=== PATIENT | male | born 1995 | race Caucasian/White ===

== ENCOUNTER 2016-03-31 06:49 | Emergency (ER) | payer SELFPAY ==
[~2016-03-31] VITALS: Ht 183.5 cm; Wt 72.6 kg
[2016-03-31] MEDS ORDERED: NKM (06:57)
[2016-03-31 07:04] VITALS: BP 104/71
[2016-03-31] MEDS ORDERED: NORCO 5-325 TA1 EACH ORAL (07:35)
[2016-03-31 07:52] VITALS: BP 135/89
[2016-03-31] MEDS ORDERED: Acetaminophen 500mg (ES) tab ORAL ONE (08:00)
--- NOTE | 2016-03-31 09:21 | Diagnostic Imaging Report ---
Indication: Trauma Technique: Continuous helical transaxial imaging of the maxillofacial structures obtained without intravenous contrast administration. Coronal 2-D reformats were also obtained. Study obtained in a Siemens sensation [address] Total Dose length Product (DLP): [address] Dose Index Volume (CTDIvol): 28, 70.4 mGy Comparison: None Findings: There is suggestion of a mild nondisplaced fracture at the tip of the nasal bone. The remainder of the osseous structures seen on this examination appear intact. The paranasal sinuses and mastoids appear clear bilaterally. Orbits are unremarkable. Impression: Acute nasal fracture. The CT scanner at [facility] is accredited by the [employer] and the scans are performed using protocols designed to limit radiation exposure to as low as reasonably achievable to attain images of sufficient resolution adequate for diagnostic evaluation.
--- NOTE | 2016-03-31 10:11 | Diagnostic Imaging Report ---
Indication: Headache Technique: Contiguous 5 mm thick transaxial imaging of the head obtained in a Siemens Sensation [address] scanner. Soft tissue and bone windows generated. Total Dose length Product (DLP): [address] Dose Index Volume (CTDIvol): 70.38 , 28.2 mGy Comparison: none Findings: The size and configuration of the cortical sulci, basal cisterns, and ventricles are within normal limits for age. There is no mass effect, midline shift, or edema identified. There is no evidence of acute hemorrhage or abnormal intra-axial or extra-axial fluid collections. The bones and soft tissues are unremarkable. Impression: No mass effect, edema or acute bleed. The CT scanner at [facility] is accredited by the [employer] and the scans are performed using protocols designed to limit radiation exposure to as low as reasonably achievable to attain images of sufficient resolution adequate for diagnostic evaluation.
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
== END 2016-03-31 07:52 ==
LOC: EDBD → EMR 07:30
DX: Z02.89 Encounter for other administrative examinations (principal); S02.2XXK Fracture of nasal bones, subsequent encounter for fracture with nonunion; Z91.013 Allergy to seafood; Y04.0XXA Assault by unarmed brawl or fight, initial encounter; X58.XXXA Exposure to other specified factors, initial encounter; Y92.9 Unspecified place or not applicable; Y99.8 Other external cause status
CPT/HCPCS: 70450; 70486; 99284

== ENCOUNTER 2016-05-12 11:06 | Emergency (ER) | payer OTHER ==
[~2016-05-12] VITALS: Ht 182.9 cm; Wt 68.0 kg
[~2016-05-12 11:06] MED LIST: NKM; NORCO 5-325 TA1 EACH ORAL
[2016-05-12] MEDS ORDERED: IBUPROFEN800 MG ORAL (13:08)
[2016-05-12] MEDS ORDERED: Azithromycin 250mg tab ORAL ONE (13:15)
[2016-05-12] MEDS ORDERED: Lidocaine 1% MPF 10mg/ml 5ml ONE (13:20)
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
[2016-05-12 13:30] VITALS: BP 135/82
[2016-05-12 13:44] VITALS: BP 135/82
--- NOTE | 2016-05-13 11:41 | Diagnostic Imaging Report ---
Indication: Back pain Comparison: None Findings: 3 views of the sacrum and coccyx were obtained. Findings: No acute fracture is identified. The sacroiliac joints are unremarkable. Sacral ala appear symmetric. There is some obscuring due to overlying bowel gas and stool. Impression: No acute injury identified.
== END 2016-05-12 13:46 | disposition home or self-care (01) ==
LOC: EDBD 13:11 → EMR 13:11
DX: S30.0XXA Contusion of lower back and pelvis, initial encounter (principal); W01.0XXA Fall on same level from slipping, tripping and stumbling without subsequent striking against object, initial encounter; Y92.9 Unspecified place or not applicable; Z91.013 Allergy to seafood; R30.0 Dysuria
CPT/HCPCS: 72220; 96372; 99283; J0696; Q0144